=== PATIENT | male | born 1940 | race Two or more races ===

== ENCOUNTER 2017-11-10 10:37 | Outpatient (CLI) | payer OTHER ==
[~2017-11-10 10:37] MED LIST: CIPRO500 MG PO; COZAAR25 MG PO; CRESTOR5 MG PO; Clonazepam PO; Cozaar PO; FLAGYL500MG PO; Lipitor 20MG PO; NORVASC 10 MG TAB PO; NORVASC10 MG PO
== END 2017-11-10 10:44 | disposition home or self-care (01) ==
LOC: RAD 10:37
DX: H25.011 Cortical age-related cataract, right eye (principal); Z98.41 Cataract extraction status, right eye

== ENCOUNTER 2017-11-14 09:39 | Outpatient (CLI) | payer OTHER | END 2017-11-14 09:44 | disposition home or self-care (01) | LOC: LAB 09:39 | DX: H25.011 Cortical age-related cataract, right eye (principal); Z98.41 Cataract extraction status, right eye; D64.89 Other specified anemias; D68.8 Other specified coagulation defects ==

== ENCOUNTER 2017-12-30 11:06 | Emergency (ER) | payer OTHER ==
[~2017-12-30] VITALS: Ht 165.1 cm; Wt 72.6 kg
[2017-12-30] MEDS ORDERED: METFORMIN HCL500 MG (11:29)
[2017-12-30] MEDS ORDERED: GLIPIZIDE10 MG (11:29)
[2017-12-30] MEDS ORDERED: OMEPRAZOLE20 MG (11:30)
[2017-12-30] MEDS ORDERED: INTESTINEX680 M1 PO (16:06)
[2017-12-30] MEDS ORDERED: PEPCID40 MG PO (16:06)
== END 2017-12-30 19:10 | disposition home or self-care (01) ==
LOC: ER 11:06
DX: K52.89 Other specified noninfective gastroenteritis and colitis (principal); R51 Headache; R42 Dizziness and giddiness

== ENCOUNTER 2019-05-03 09:40 | Outpatient (CLI) | payer OTHER ==
[~2019-05-03 09:40] MED LIST changes: +GLIPIZIDE10 MG; +INTESTINEX680 M1 PO; +METFORMIN HCL500 MG; +OMEPRAZOLE20 MG; +PEPCID40 MG PO
== END 2019-05-03 15:59 | disposition home or self-care (01) ==
LOC: TOM 09:40
DX: K57.30 Diverticulosis of large intestine without perforation or abscess without bleeding (principal); R10.32 Left lower quadrant pain

== ENCOUNTER 2019-09-10 08:18 | Emergency (ER) | payer OTHER ==
[~2019-09-10] VITALS: Ht 165.1 cm; Wt 71.7 kg
[2019-09-10] MEDS ORDERED: NORVASC10 MG (12:54)
== END 2019-09-10 14:46 | disposition home or self-care (01) ==
LOC: ER 08:18 → CPU-OBS 08:24 → ER 08:24
DX: R07.89 Other chest pain (principal)

== ENCOUNTER → 2020-02-15 | Emergency (ER) | payer OTHER ==
[~2020-02-15] VITALS: Ht 165.1 cm; Wt 71.7 kg
[~2020-02-15] MED LIST changes: +NORVASC10 MG
== END | disposition home or self-care (01) ==
LOC: ER 16:52
DX: R53.1 Weakness (principal); Z20.828 Contact with and (suspected) exposure to other viral communicable diseases

== ENCOUNTER → 2020-03-14 | Outpatient (CLI) | payer OTHER | END | disposition home or self-care (01) | LOC: OFIC 805 09:32 | PROVIDERS: ATTEND Otolaryngology | DX: R42 Dizziness and giddiness (principal); H61.23 Impacted cerumen, bilateral ==